=== PATIENT | female | born 1930 | race Caucasian/White ===

== ENCOUNTER 2016-09-12 10:01 | Inpatient (IN) | payer MEDICARE, OTHER ==
--- NOTE | ~2016-09-12 | OP ---
Record Of Operation [facility] [address] [place]. [address] NAME: STACY PLEITEZ : [birth year] STATUS : ADM IN PAT#: [id number] AGE: 85 ADM/REG DATE : 09/12/16 MR#: [id number] REPORT SERV DATE: 09/12/16 DICTATED BY: JOSE ALEJANDRO GUTIÉRREZ JR. DATE: 09/12/16 REPORT STATUS : Draft TRANSCRIBED BY: MODL DATE: 09/12/16 DATE OF PROCEDURE: 09/12/2016 PREOPERATIVE DIAGNOSIS: Left carotid stenosis. POSTOPERATIVE DIAGNOSIS: Left carotid stenosis. OPERATIONS: Left carotid endarterectomy with bovine patch angioplasty. SURGEON: Jose Alejandro Gutiérrez M.D. VASCULAR FELLOW: Ashlee Cuellar MD. HISTORY: This is an 85-year-old white female, who was sent to my office with a very tight left carotid stenosis. PROCEDURE: The patient was placed on the operating room table. She underwent a general endotracheal anesthetic. The left side of the neck was prepped and draped in the usual sterile manner. A standard left-sided sternocleidomastoid incision was made. Dissection was carried down to the facial vein. It was clamped, cut, and tied. The underlying carotid bifurcation was then seen. The patient was heparinized with 4000 units of heparin. All branches of carotid artery then dissected out away from the bifurcation. All branches were then clamped. Arteriotomy was then done between the CCA and the ICA. An 8-[place] straight [place] Shunt was placed in the ICA with excellent back bleeding. The other end was placed in the CCA. Shunt stayed in place for the entire case. Endarterectomy started in the area. The CCA count was carried up to the ECA and then the ICA. A plaque was ulcerated and was cheesy in nature. Fine forceps was used to get all smooth muscle floaters. All distal endpoint feathered nicely. We elected to patch the arteriotomy open using a piece of bovine pericardial patch material, sewn in place with a 6-0 Prolene suture. The shunt was removed just before finishing the suture line. The suture line was finished. Blood was allowed to run up into the ECA first. The heparin was not reversed. There was no need for drain. The neck was closed in layers with 3-0 Vicryl deep and 4-0 Vicryl in the skin. The patient tolerated procedure well, taken back to recovery room in fair condition. There were no intraoperative complications. ESTIMATED BLOOD LOSS: 100 mL. DF/MODL Jose Alejandro Gutiérrez Jr., M.D. / [id number] Record Of Operation [address] [address] NAME: STACY PLEITEZ : [birth year] STATUS : ADM IN [facility]#: [id number] AGE: 85 ADM/REG DATE : 09/12/16 MR#: [id number] REPORT SERV DATE: 09/12/16 DICTATED BY: JOSE ALEJANDRO GUTIÉRREZ JR. DATE: 09/12/16 REPORT STATUS : Draft TRANSCRIBED BY: CHRIS DATE: 09/12/16 CC: Jose Alejandro Gutiérrez Jr., M.D.
[~2016-09-12 10:01] MED LIST: CRESTOR5 MG PO; VITAMIN D31000 UNIT PO; X5 PO; [UNRECOGNIZED DRUG - OTHER]; [UNRECOGNIZED DRUG - OTHER] PO
[2016-09-12 10:53] LABS: HEMATOCRIT 39.5 % (36.0-48.0); HEMOGLOBIN 12.8 g/dL (12.0-16.0)
[2016-09-12 11:05] LABS: BUN (BLOOD UREA NITROGEN) 15 MG/DL (6-23); CALCIUM, SERUM 9.2 MG/DL (8.5-10.4); CHLORIDE, SERUM 107 MMOL/L (96-112); CO2 (CARBON DIOXIDE) 38 MMOL/L (24-34); CREATININE 0.79 MG/DL (0.55-1.02); GFR AFRICAN AMERICAN 78 ML/MIN (>=60); GFR NON AFRICAN AMERICAN 67 ML/MIN (>=60); GLUCOSE, SERUM 85 MG/DL (60-99); POTASSIUM, SERUM 4.1 MMOL/L (3.5-5.3); SODIUM, SERUM 144 MMOL/L (135-148)
[2016-09-13] MEDS ORDERED: PCET PO (11:26)
[2016-09-13] MEDS ORDERED: ASA5GR PO (11:26)
== END 2016-09-13 14:52 | disposition home or self-care (01) | DRG 39 ==
LOC: SDC/OF 10:01 → PACU 14:59 → 2SO 18:13
PROVIDERS: Surgery
PROC: 03UL0KZ Supplement Left Internal Carotid Artery with Nonautologous Tissue Substitute, Open Approach (ICD-10-PCS; 2016-09-12)
PROC: 03CL0Z6 (ICD-10-PCS; principal; 2016-09-12 12:15)
DX: I65.23 Occlusion and stenosis of bilateral carotid arteries (principal); F32.9 Major depressive disorder, single episode, unspecified; F41.9 Anxiety disorder, unspecified; R07.89 Other chest pain; I83.93 Asymptomatic varicose veins of bilateral lower extremities; Z82.3 Family history of stroke; Z82.49 Family history of ischemic heart disease and other diseases of the circulatory system; Z98.890 Other specified postprocedural states
CPT/HCPCS: 80048; 85014; 85018; 87641; 88304; 93005; A9270-GY; C1768; J0690; J2370; J2405; J2710; J3010